=== PATIENT | female | born 1960 | race Caucasian/White ===

== ENCOUNTER 2025-05-14 09:30 | Day surgery (SDC) | payer MEDICARE, OTHER ==
[~2025-05-14] VITALS: Ht 167.6 cm; Wt 54.0 kg
[~2025-05-14 09:30] MED LIST: ASTEPRO AL205.5 MCG/ NAS; CETIRIZINE HCL10 MG PO; CYCLOBENZAPRINE10 MG PO; IBLOOD GLUCOSE TEST STRIP 1 EA TEST VI PRN; INCRUSE ELLI62.5 MCG INH; LACTATED RINGER'S 1,000 ML IV SCH; LIDOCAINE HCL 1% 5 ML SDV INJ ONE; MELOXICAM15 MG PO; MULTI VITAMIN1 EACH PO; OMEPRAZOLE20 MG PO; TRAMADOL HCL50 MG PO; VENLAFAXINE HCL50 MG PO; VENTOLIN HFA18 GM INH; VITAMIN D-40010 MCG PO
[2025-05-14 09:49] VITALS: BP 103/73
[2025-05-14] MEDS ORDERED: B12 ACTIVE1000 MCG PO (09:53)
[2025-05-14 10:33] LABS: ALT (SGPT) 24.0 U/L (14-59); AST (SGOT) 19.0 U/L (15-37); GLOMERULAR FILTRATION RATE,EST 66.0 mL/min (>60); PROTEIN, TOTAL 7.6 g/dL (6.4-8.2); UREA NITROGEN 18.0 mg/dL (7-18)
[2025-05-14] MEDS ORDERED: LIDOCAINE HCL 2% 5 ML SDV ONE (12:32)
[2025-05-14] MEDS ORDERED: PHENYLEPHRINE HCL IN 0.9% NACL 1 MG/10 ML SYR ONE (12:51)
[2025-05-14] MEDS ORDERED: fentaNYL citrate 100 MCG/2 ML VIAL ONE (12:56)
--- NOTE | 2025-05-14 13:32 | NUR ---
05/14/25 1332 Rachana Brock 1321-PATIENT ARRIVED TO PACU ON 2L NC RR EVEN. PATIENT NONAROUSABLE LAYING LEFT LATERAL ABDOMEN SOFT. SR HR 80'S. 1331-PATIENT REMAINS NONAROUSABLE 2L NC RR EVEN 98% IVF INFUSING.
[2025-05-14 14:02] VITALS: BP 137/84
--- NOTE | 2025-05-16 13:11 | EKG ---
[facility] [address] [facility] [place], [place] [address] Signed Normal sinus rhythm Normal ECG No previous ECGs available Confirmed by Ernst Grant DO ([id number]) on 05/16/2025 1:11:11 PM Electronically Signed By: ERNST GRANT DO 05/16/25 1311 PATIENT NAME: LUZ MARINA HAGEN Electrocardiogram DATE OF : 56 PHYSICIAN: ERNST GRANT DO REPORT #: [id number] REPORT IS CONFIDENTIAL AND NOT TO BE RELEASED WITHOUT AUTHORIZATION
== END 2025-05-14 14:10 | disposition home or self-care (01) ==
LOC: OPS 09:30 → DS 09:30 → OPS 11:00 → DS 12:45 → OPS 14:10
PROVIDERS: Student in an Organized Health Care Education/Training Program; ATTEND Surgery
PROC: 0DJD8ZZ Inspection of Lower Intestinal Tract, Via Natural or Artificial Opening Endoscopic (ICD-10-PCS; principal; 2025-05-14 11:00)
DX: Z12.11 Encounter for screening for malignant neoplasm of colon (principal); J44.9 Chronic obstructive pulmonary disease, unspecified; Z80.0 Family history of malignant neoplasm of digestive organs; Z79.899 Other long term (current) drug therapy; Z86.0100 Personal history of colon polyps, unspecified
CPT/HCPCS: 00811; 36415; 80053; 93005; 93010; J0165; J2003; J2704; J3010; J7121